=== PATIENT | male | born 1930 | race Caucasian/White ===

== ENCOUNTER 2017-01-06 13:31 | Emergency (ER) | payer MEDICARE, BC ==
[2017-01-06 14:15] LABS: CHLORIDE,CL 100 mmol/L (101-111); SODIUM,NA 134 mmol/L (135-145)
--- NOTE | 2017-01-06 14:35 | CR ---
Clinical history: 86-year-old male with shortness of breath reported on recent CT scan chest (Oct ruary 2016) to have "chronic pulmonary artery hypertension, small pericardial and bilateral pleural effusions and severe panlobular emphysema". Interpretation: Abnormal. Pneumothorax, left chest. 1. Large (1/4-1/3 volume left hemithorax) left pneumothorax new since CT exam 04 November. 2. No rib fractures or ipsilateral pleural effusion. No foreign bodies. No accompanying shift of the heart or mediastinal structures. No pneumomediastinum. 3. Normal cardiac silhouette without cephalization of vascular flow or pleural fluid accumulation. 4. Pelvis proximal pulmonary artery segments, generalized air trapping and analyzed pleural parenchy mal scarring with bullous changes of the right lung typical of "pulmonary emphysema". 5. Some platelike atelectasis particularly left base. No lobar pneumonia. CONCLUSION: Large left pneumothorax, acute.
--- NOTE | 2017-01-06 14:56 | EDM.PDOC ---
ED HISTORY OF PRESENT ILLNESS - General Chief Complaint: Respiratory Problem Stated Complaint: [id number] BREATHING HEART PROBLEMS Time Seen by Provider: 01/06/17 13:55 Source of Information: Reports: Patient History Limitations: Reports: No limitations - History of Present Illness INITIAL COMMENTS - FREE TEXT/NARRATIVE: This 86 yo male patient reports to the ED with increased shortness of breath over the past 3-4 days. The patient reports that he has been attempting to use steroids as directed by his primary care provider, but has not been getting any better. The patient has been treated numerous times for COPD and exacerbations. 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) - Related Data Allergies/ADRs: Allergies Allergy/AdvReac Type Severity Reaction Status Date / Time allopurinol Allergy Cannot Verified 09/24/16 07:07 Remember lovastatin Allergy Muscle Verified 09/24/16 07:07 Weakness Home Meds: Home Meds Atenolol 12.5 mg PO DAILY 02/17/15 [History] Budesonide/Formoterol [Symbicort 160-4.5 MCG] 2 puff INH BID 02/17/15 [History] Dabigatran Etexilate Mesylate [Pradaxa] 150 mg PO BID 02/17/15 [History] Flunisolide [Nasalide Nasal [place]] 2 spray JAYA BID PRN 02/17/15 [History] Lisinopril 10 mg PO DAILY 02/17/15 [History] Terazosin HCl [Terazosin] 2 mg PO BEDTIME 02/17/15 [History] predniSONE [Prednisone] 10 mg PO DAILY 02/17/15 [History] Amiodarone [Cordarone] 200 mg PO DAILY 08/08/16 [History] Furosemide [Lasix] 20 mg PO DAILY PRN 08/08/16 [History] Levothyroxine Sodium [Synthroid] 250 mcg PO DAILY 08/08/16 [History] Roflumilast [Daliresp] 500 mcg PO DAILY 08/08/16 [History] Albuterol Sulfate [Proair Hfa] 2 puff INH ASDIRECTED 09/22/16 [History] Tiotropium [Spiriva HandiHaler] 18 mcg INH DAILY 09/22/16 [History] Cholecalciferol (Vitamin D3) [Vitamin D3] 2,000 unit PO DAILY 09/23/16 [History] Past Medical History HEENT History: Reports: Allergic rhinitis Cardiovascular History: Reports: Afib, CAD, High cholesterol, Hypertension, [place] Respiratory History: Reports: Bronchitis, recurrent, COPD Gastrointestinal History: Reports: Hemorrhoids Genitourinary History: Reports: BPH, UTI, recurrent, Other (see below) Other Genitourinary History: Bladder cancer Musculoskeletal History: Reports: None Neurological History: Reports: None Psychiatric History: Reports: None Endocrine/Metabolic History: Reports: None Other Endocrine/Metabolic History: FASTING HYPERGLYCEMIA Hematologic History: Reports: None Immunologic History: Reports: None Oncologic (Cancer) History: Reports: Bladder Dermatologic History: Reports: None - Infectious Disease History Infectious Disease History: Reports: None - Past Surgical History Head Surgeries/Procedures: Reports: None HEENT Surgical History: Reports: Cataract surgery, Other (see below) Other HEENT Surgeries/Procedures: BILAT CATARACT EXTRACTION Social & Family History - Family History Family Medical History: Noncontributory - Tobacco Use Smoking Status *Q: Former Smoker Used Tobacco, but Quit: Yes Month Tobacco Last Used: quit 36 years ago Tobacco Use Comment: reports he quit 36 years ago Second Hand Smoke Exposure: No - Caffeine Use Caffeine Use: Reports: Coffee Other Caffeine Use: AVERAGE OF 3 CUPS DAILY - Recreational Drug Use Recreational Drug Use: No Drug Use in Last 12 Months: No ED ROS GENERAL - Review of Systems Review Of Systems: ROS reveals no pertinent complaints other than HPI. ED EXAM, GENERAL - Physical Exam Exam: See Below Exam Limited By: No limitations General Appearance: alert, WD/WN, moderate distress, thin Eye Exam: bilateral eye: EOMI, normal inspection, PERRL Ears: normal external exam, normal canal, hearing grossly normal, normal TMs Nose: normal inspection, normal mucosa, no blood Throat/Mouth: Normal inspection, Normal lips, Normal teeth, Normal gums, Normal oropharynx, Normal voice, No airway compromise Head: atraumatic, normocephalic Neck: normal inspection, supple, non-tender, full range of motion Respiratory/Chest: decreased breath sounds (left side of chest), wheezing Cardiovascular: normal peripheral pulses, regular rate, rhythm, no edema, no gallop, no JVD, no murmur, no rub GI/Abdominal: normal bowel sounds, soft, non tender, no organomegaly, no distention, no abnormal bruit, no mass (Male) Exam: Deferred Rectal (Males) Exam: Deferred Back Exam: normal inspection, full range of motion, NT Extremities: normal inspection, normal range of motion, non-tender, normal capillary refill, no pedal edema Neurological: alert, oriented, CN II-XII intact, normal cognition, normal gait, normal reflexes, no motor/sensory deficits Psychiatric: normal affect, normal mood Skin Exam: Warm, Dry, Intact, Normal color, No rash Lymphatic: no adenopathy Course - Vital Signs Last Recorded V/S: Last Vital Signs Temp 36.2 C 01/06/17 15:01 Pulse 70 01/06/17 15:01 Resp 16 01/06/17 15:01 BP 170/85 H 01/06/17 15:01 Pulse Ox 94 L 01/06/17 15:01 - Orders/Labs/Meds Orders: Active Orders 24 hr Category Date Time Status EKG Documentation Completion [RC] URGENT Care 01/06/17 13:41 Active Labs: Laboratory Tests 01/06/17 01/06/17 Range/Units 13:48 13:48 WBC 9.3 (5.0-10.0) 10^3/uL RBC 4.87 (4.6-6.2) 10^6/uL Hgb 13.3 L (14.0-18.0) g/dL Hct 41.9 (40.0-54.0) % MCV 86.0 (80-100) fL MCH 27.3 (27.0-34.0) pg MCHC 31.7 L (33.0-35.0) g/dL Plt Count 162 (150-450) 10^3/uL Neut % (Auto) 88.9 H (42.2-75.2) % Lymph % (Auto) 5.9 L (20.5-50.1) % Smith % (Auto) 4.9 (2-8) % Eos % (Auto) 0.2 L (1.0-3.0) % Baso % (Auto) 0.1 (0.0-1.0) % Sodium 134 L (135-145) mmol/L Potassium 4.2 (3.6-5.0) mmol/L Chloride 100 L (101-111) mmol/L Carbon Dioxide 25.0 (21.0-31.0) mmol/L Anion Gap 13.2 BUN 17 (7-18) mg/dL Creatinine 1.1 (0.6-1.3) mg/dL Est Cr Clr Drug Dosing 49.99 mL/min Estimated GFR (MDRD) > 60 BUN/Creatinine Ratio 15.45 Glucose 190 H (74-105) mg/dL Calcium 9.0 (8.4-10.2) mg/dl Total Bilirubin 0.7 (0.2-1.0) mg/dL AST 30 (10-42) IU/L ALT 23 (10-60) IU/L Alkaline Phosphatase 69 (42-121) IU/L Troponin I 0.03 H* (0.00-0.02) ng/ml Total Protein 7.2 (6.7-8.2) g/dl Albumin 3.2 (3.2-5.5) g/dl Globulin 4.0 Albumin/Globulin Ratio 0.80 - Re-Assessments/Exams Free Text/Narrative Re-Assessment/Exam: 01/06/17 15:01 A call was placed to the [facility] at [phone]. They advised that there was a bed and will call back for a provider to provider report. Departure - Departure Time of Disposition: 15:18 Disposition: DC/Tfer to Acute Hospital 02 Condition: poor Clinical Impression: Pneumothorax Qualifiers: Pneumothorax type: spontaneous, primary Qualified Code(s): J93.11 - Primary spontaneous pneumothorax Forms: Interfacility Transfer EMTALA Care Plan Goals: Discussed the history, examination, lab, and x-ray results with Dr. Taylor. Dr. Taylor accepted the patient for continued evaluation and further management at [facility] in [place]. The patient will be transported by ambulance. - My Orders Last 24 Hours: My Active Orders 01/06/17 13:41 EKG Documentation Completion [RC] URGENT - Assessment/Plan Last 24 Hours: My Active Orders 01/06/17 13:41 EKG Documentation Completion [RC] URGENT
[2017-01-06 15:53] VITALS: BP 174/97
--- NOTE | 2017-01-10 12:57 | EKG ---
01/06/2017 - ELIZABETH DEE - A 12-lead EKG shows normal sinus rhythm with ventricular premature complex. No significant ST elevation or ST depression noted on this 12-lead EKG. Nonspecific ST changes on lead V2, V3. [facility] /[id number]
== END 2017-01-06 16:51 ==
LOC: DL.ED 13:31
DX: J93.11 Primary spontaneous pneumothorax (principal); I48.91 Unspecified atrial fibrillation; I25.10 Atherosclerotic heart disease of native coronary artery without angina pectoris; E78.00 Pure hypercholesterolemia, unspecified; I10 Essential (primary) hypertension; I25.2 Old myocardial infarction; J44.9 Chronic obstructive pulmonary disease, unspecified; Z98.49 Cataract extraction status, unspecified eye; Z88.8 Allergy status to other drugs, medicaments and biological substances; Z79.899 Other long term (current) drug therapy; Z87.891 Personal history of nicotine dependence
CPT/HCPCS: 36415; 71020; 80053; 84484; 85025; 93005; 99284; 99285

== ENCOUNTER 2017-12-15 09:48 | Inpatient (IN) | payer OTHER, MEDICARE, BC ==
[2017-12-15] MEDS ORDERED: Diltiazem 25 MG/5 ML SDV IVPUSH ONE (10:11)
--- NOTE | 2017-12-15 10:14 | EDM.PDOC ---
<Krys Israel - Last Filed: 12/15/17 10:16> ED HPI GENERAL MEDICAL PROBLEM - General Chief Complaint: Cardiovascular Problem Stated Complaint: Atrial Fibrillation Time Seen by Provider: 12/15/17 10:10 Source of Information: Reports: Patient, RN, RN Notes Reviewed - History of Present Illness INITIAL COMMENTS - FREE TEXT/NARRATIVE: Harpreet is a 87yo M who presents to the ED due to palpitations that started three days ago. He reports that he was previously on amiodarone for atrial fibrillation but it was recently discontinued due to it interfering with his COPD medications. He reports occasional dizziness off and on and mild chest pressure. He denies increased shortness of breath, nausea/vomiting, recent illnesses, weakness, or fevers. He reports "I got sick of feeling like this so I came in." Onset: Gradual Duration: Day(s): Quality: Reports: Pressure Severity: Mild Improves with: Reports: None Associated Symptoms: Reports: Chest Pain - Related Data Allergies Allergy/AdvReac Type Severity Reaction Status Date / Time allopurinol Allergy Cannot Verified 12/15/17 10:25 Remember lovastatin Allergy Muscle Verified 12/15/17 10:25 Weakness Home Meds: Home Meds Atenolol 25 mg PO DAILY 02/17/15 [History] Budesonide/Formoterol [Symbicort 160-4.5 MCG] 2 puff INH BID 02/17/15 [History] Dabigatran Etexilate Mesylate [Pradaxa] 150 mg PO BID 02/17/15 [History] Flunisolide [Nasalide Nasal [place]] 2 spray JAYA BID PRN 02/17/15 [History] Lisinopril 10 mg PO DAILY 02/17/15 [History] Terazosin HCl [Terazosin] 2 mg PO BEDTIME 02/17/15 [History] predniSONE [Prednisone] 5 mg PO DAILY 02/17/15 [History] Furosemide [Lasix] 20 mg PO DAILY PRN 08/08/16 [History] Levothyroxine Sodium [Synthroid] 250 mcg PO DAILY 08/08/16 [History] Roflumilast [Daliresp] 500 mcg PO DAILY 08/08/16 [History] Albuterol Sulfate [Proair Hfa] 2 puff INH QID 09/22/16 [History] Tiotropium [Spiriva HandiHaler] 18 mcg INH DAILY 09/22/16 [History] Past Medical History HEENT History: Reports: Allergic Rhinitis Cardiovascular History: Reports: Afib, CAD, High Cholesterol, Hypertension, [place] Respiratory History: Reports: Bronchitis, Recurrent, COPD Gastrointestinal History: Reports: Hemorrhoids Genitourinary History: Reports: BPH, UTI, Recurrent, Other (See Below) Other Genitourinary History: Bladder cancer Musculoskeletal History: Reports: None Neurological History: Reports: None Psychiatric History: Reports: None Endocrine/Metabolic History: Reports: None Other Endocrine/Metabolic History: FASTING HYPERGLYCEMIA Hematologic History: Reports: None Immunologic History: Reports: None Oncologic (Cancer) History: Reports: Bladder Dermatologic History: Reports: None - Infectious Disease History Infectious Disease History: Reports: None - Past Surgical History HEENT Surgical History: Reports: Cataract Surgery, Other (See Below) Social & Family History - Family History Family Medical History: Noncontributory - Tobacco Use Smoking Status *Q: Former Smoker Used Tobacco, but Quit: Yes Month/Year Tobacco Last Used: quit 36 years ago Second Hand Smoke Exposure: No - Caffeine Use Caffeine Use: Reports: Coffee Other Caffeine Use: AVERAGE OF 3 CUPS DAILY - Recreational Drug Use Recreational Drug Use: No Drug Use in Last 12 Months: No ED ROS GENERAL - Review of Systems Review Of Systems: ROS reveals no pertinent complaints other than HPI. ED EXAM, GENERAL - Physical Exam Exam: See Below Exam Limited By: No Limitations General Appearance: Alert, WD/WN, No Apparent Distress Eye Exam: Bilateral Eye: PERRL Ears: Normal External Exam, Normal Canal, Hearing Grossly Normal, Normal TMs Ear Exam: Bilateral Ear: Auricle Normal, Canal Normal, TM normal Nose: Normal Inspection, Normal Mucosa, No Blood Throat/Mouth: Normal Inspection, Normal Lips, Normal Teeth, Normal Gums, Normal Oropharynx, Normal Voice, No Airway Compromise Head: Atraumatic, Normocephalic Neck: Normal Inspection, Supple, Non-Tender, Full Range of Motion Respiratory/Chest: No Respiratory Distress, Lungs Clear, Normal Breath Sounds, No Accessory Muscle Use, Chest Non-Tender, Other (Patient wears oxygen at 2 liters continuously due to underlying COPD. ) Cardiovascular: Normal Peripheral Pulses, No Edema, No Gallop, No JVD, No Rub ( Heart rate irregular. ) GI/Abdominal: Normal Bowel Sounds, Soft, Non-Tender, No Organomegaly, No Distention, No Abnormal Bruit, No Mass (Male) Exam: Deferred Rectal (Males) Exam: Deferred Back Exam: Normal Inspection, Full Range of Motion, NT Extremities: Normal Inspection, Normal Range of Motion, Non-Tender, Normal Capillary Refill, No Pedal Edema Neurological: Alert, Oriented, CN II-XII Intact, Normal Cognition, Normal Gait, Normal Reflexes, No Motor/Sensory Deficits Psychiatric: Normal Affect, Normal Mood Skin Exam: Warm, Dry, Intact, Normal Color, No Rash Lymphatic: No Adenopathy Course - Vital Signs Last Recorded V/S: Last Vital Signs Temp 98.2 F 12/15/17 10:00 Pulse 112 H 12/15/17 10:49 Resp 20 12/15/17 10:30 BP 117/62 12/15/17 10:49 Pulse Ox 93 L 12/15/17 10:25 - Orders/Labs/Meds Orders: Active Orders 24 hr Category Date Time Status EKG 12 Lead [EKG Documentation Completion] [RC] STAT Care 12/15/17 10:07 Active EKG Documentation Completion [RC] STAT Care 12/15/17 10:10 Active Peripheral IV Care [RC] . DIRECTED Care 12/15/17 10:11 Active UA W/MICROSCOPIC [URIN] Stat Lab 12/15/17 12:39 Ordered Sodium Chloride 0.9% [Normal Saline] 1,000 ml Med 12/15/17 11:42 Active IV .BOLUS Sodium Chloride 0.9% [Normal Saline] 100 ml Med 12/15/17 12:01 Active Diltiazem 125 mg IV 5 mg/hr Sodium Chloride 0.9% [Saline Flush] Med 12/15/17 10:10 Active 10 ml FLUSH ASDIRECTED PRN Peripheral IV Insertion Adult [OM.PC] Stat Oth 12/15/17 10:10 Ordered Medication Orders Sodium Chloride (Normal Saline) 1,000 mls @ 250 mls/hr IV .BOLUS ONE Stop: 12/15/17 15:41 Last Admin: 12/15/17 11:51 Dose: 250 mls/hr Diltiazem HCl 125 mg/ Sodium (Chloride) 125 mls @ 5 mls/hr IV .Q24H ONE; Protocol Stop: 12/16/17 12:00 Last Admin: 12/15/17 12:30 Dose: 5 mg/hr, 5 mls/hr Sodium Chloride (Saline Flush) 10 ml FLUSH ASDIRECTED PRN PRN Reason: Keep Vein Open Last Admin: 12/15/17 10:20 Dose: 10 ml Labs: Laboratory Tests 12/15/17 12/15/17 12/15/17 Range/Units 10:20 10:20 10:20 WBC 10.0 (5.0-10.0) 10^3/uL RBC 4.75 (4.6-6.2) 10^6/uL Hgb 13.4 L (14.0-18.0) g/dL Hct 42.4 (40.0-54.0) % MCV 89.3 D (80-100) fL MCH 28.2 (27.0-34.0) pg MCHC 31.6 L (33.0-35.0) g/dL Plt Count 179 (150-450) 10^3/uL Neut % (Auto) 80.5 H (42.2-75.2) % Lymph % (Auto) 9.3 L (20.5-50.1) % [place] % (Auto) 8.3 H (2-8) % Eos % (Auto) 1.6 (1.0-3.0) % Baso % (Auto) 0.3 (0.0-1.0) % PT 12.1 H (9.0-12.0) SEC INR 1.2 (0.9-1.2) Sodium 137 (135-145) mmol/L Potassium 4.0 (3.6-5.0) mmol/L Chloride 101 (101-111) mmol/L Carbon Dioxide 27.0 (21.0-31.0) mmol/L Anion Gap 13.0 BUN 21 H (7-18) mg/dL Creatinine 1.1 (0.6-1.3) mg/dL Est Cr Clr Drug Dosing 44.10 mL/min Estimated GFR (MDRD) > 60 BUN/Creatinine Ratio 19.09 Glucose 156 H (74-105) mg/dL Calcium 8.5 (8.4-10.2) mg/dl Total Bilirubin 0.8 (0.2-1.0) mg/dL AST 25 (10-42) IU/L ALT 16 (10-60) IU/L Alkaline Phosphatase 63 (42-121) IU/L Troponin I 0.02 (0.00-0.02) ng/ml Total Protein 6.8 (6.7-8.2) g/dl Albumin 2.8 L (3.2-5.5) g/dl Globulin 4.0 Albumin/Globulin Ratio 0.70 TSH, Ultra Sensitive (0.45-5.33) uIu/mL Urine Color (YELLOW) Urine Appearance (CLEAR) Urine pH (5.0-9.0) Ur Specific [place] (1.005-1.030) Urine Protein (NEGATIVE) Urine Glucose (UA) (NEGATIVE) Urine Ketones (NEGATIVE) Urine Occult Blood (NEGATIVE) Urine Nitrite (NEGATIVE) Urine Bilirubin (NEGATIVE) Urine Urobilinogen (0.2-1.0) mg/dL Ur Leukocyte Esterase (NEGATIVE) Urine RBC /HPF Urine WBC (0-5/HPF) /HPF Ur Epithelial Cells /HPF Amorphous Sediment (0/HPF) /HPF Urine Bacteria (0-FEW/HPF) /HPF Urine Mucus /LPF 12/15/17 12/15/17 Range/Units 10:20 12:39 WBC (5.0-10.0) 10^3/uL RBC (4.6-6.2) 10^6/uL Hgb (14.0-18.0) g/dL Hct (40.0-54.0) % MCV (80-100) fL MCH (27.0-34.0) pg MCHC (33.0-35.0) g/dL Plt Count (150-450) 10^3/uL Neut % (Auto) (42.2-75.2) % Lymph % (Auto) (20.5-50.1) % [place] % (Auto) (2-8) % Eos % (Auto) (1.0-3.0) % Baso % (Auto) (0.0-1.0) % PT (9.0-12.0) SEC INR (0.9-1.2) Sodium (135-145) mmol/L Potassium (3.6-5.0) mmol/L Chloride (101-111) mmol/L Carbon Dioxide (21.0-31.0) mmol/L Anion Gap BUN (7-18) mg/dL Creatinine (0.6-1.3) mg/dL Est Cr Clr Drug Dosing mL/min Estimated GFR (MDRD) BUN/Creatinine Ratio Glucose (74-105) mg/dL Calcium (8.4-10.2) mg/dl Total Bilirubin (0.2-1.0) mg/dL AST (10-42) IU/L ALT (10-60) IU/L Alkaline Phosphatase (42-121) IU/L Troponin I (0.00-0.02) ng/ml Total Protein (6.7-8.2) g/dl Albumin (3.2-5.5) g/dl Globulin Albumin/Globulin Ratio TSH, Ultra Sensitive 6.68 H (0.45-5.33) uIu/mL Urine Color [place] (YELLOW) Urine Appearance Clear (CLEAR) Urine pH 5.5 (5.0-9.0) Ur Specific [place] 1.025 (1.005-1.030) Urine Protein Negative (NEGATIVE) Urine Glucose (UA) Negative (NEGATIVE) Urine Ketones Negative (NEGATIVE) Urine Occult Blood Negative (NEGATIVE) Urine Nitrite Negative (NEGATIVE) Urine Bilirubin Small H (NEGATIVE) Urine Urobilinogen 0.2 (0.2-1.0) mg/dL Ur Leukocyte Esterase Negative (NEGATIVE) Urine RBC Not seen /HPF Urine WBC Not seen (0-5/HPF) /HPF Ur Epithelial Cells Rare /HPF Amorphous Sediment Few (0/HPF) /HPF Urine Bacteria Not seen (0-FEW/HPF) /HPF Urine Mucus Many H /LPF Meds: Medications Generic Name Dose Route Start Last Admin Trade Name Freq PRN Reason Stop Dose Admin Sodium Chloride 1,000 mls @ 250 mls/hr 12/15/17 11:42 12/15/17 11:51 Normal Saline IV 12/15/17 15:41 250 mls/hr .BOLUS ONE Administration Diltiazem HCl 125 mg/ Sodium 125 mls @ 5 mls/hr 12/15/17 12:01 12/15/17 12:30 Chloride IV 12/16/17 12:00 5 mg/hr .Q24H ONE 5 mls/hr Administration Protocol 5 MG/HR Sodium Chloride 10 ml 12/15/17 10:10 12/15/17 10:20 Saline Flush FLUSH 10 ml ASDIRECTED PRN Administration Keep Vein Open Discontinued Medications Generic Name Dose Route Start Last Admin Trade Name Freq PRN Reason Stop Dose Admin Diltiazem HCl 25 mg 12/15/17 10:11 12/15/17 10:20 Diltiazem IVPUSH 12/15/17 10:12 25 mg ONETIME ONE Administration Departure - Departure Disposition: Admitted As Inpatient 68 Clinical Impression: Atrial fibrillation with RVR Forms: ED Department Discharge - My Orders Last 24 Hours: My Active Orders 12/15/17 10:07 EKG 12 Lead [EKG Documentation Completion] [RC] STAT 12/15/17 10:10 EKG Documentation Completion [RC] STAT Sodium Chloride 0.9% [Saline Flush] 10 ml FLUSH ASDIRECTED PRN Peripheral IV Insertion Adult [OM.PC] Stat 12/15/17 10:11 Peripheral IV Care [RC] . DIRECTED 12/15/17 11:42 Sodium Chloride 0.9% [Normal Saline] 1,000 ml IV .BOLUS 12/15/17 12:01 Sodium Chloride 0.9% [Normal Saline] 100 ml Diltiazem 125 mg IV 5 mg/hr 12/15/17 12:39 UA W/MICROSCOPIC [URIN] Stat - Assessment/Plan Last 24 Hours: My Active Orders 12/15/17 10:07 EKG 12 Lead [EKG Documentation Completion] [RC] STAT 12/15/17 10:10 EKG Documentation Completion [RC] STAT Sodium Chloride 0.9% [Saline Flush] 10 ml FLUSH ASDIRECTED PRN Peripheral IV Insertion Adult [OM.PC] Stat 12/15/17 10:11 Peripheral IV Care [RC] . DIRECTED 12/15/17 11:42 Sodium Chloride 0.9% [Normal Saline] 1,000 ml IV .BOLUS 12/15/17 12:01 Sodium Chloride 0.9% [Normal Saline] 100 ml Diltiazem 125 mg IV 5 mg/hr 12/15/17 12:39 UA W/MICROSCOPIC [URIN] Stat <Maty Davis - Last Filed: 12/15/17 12:57> Course - Radiology Interpretation Free Text/Narrative:: Chest xray: Signs of COPD and chronic abnormalities right lung base. No pneumothorax, heart failure or lobar pneumonia See rad report - Re-Assessments/Exams Free Text/Narrative Re-Assessment/Exam: 12/15/17 12:04 Discussed pt case with Dr. Patel who was willing to admit the patient as an inpatient on Diltiazem drip. Departure - Departure Time of Disposition: 12:03 Condition: Fair
[2017-12-15] MEDS: Sodium Chloride 0.9% 10 ML Syringe FLUSH PRN ×2 (10:20→16:24)
[2017-12-15 10:47] LABS: CHLORIDE,CL 101 mmol/L (101-111); SODIUM,NA 137 mmol/L (135-145)
--- NOTE | 2017-12-15 10:47 | CR ---
Clinical history: 87-year-old male chest pain who has a significant history of COPD with radius "larg e spontaneous left pneumothorax". Interpretation: Prominent proximal pulmonary artery segments and chronic pleural-parenchymal scarring lung bases. Chronic small subpulmonic pleural effusion on the right. Normal cardiac silhouette for AP technique and no cephalization, new signs of alveolar edema or depen dent pleural fluid accumulation when compared to 06 January 2017 exam. No residual evidence "pneumothorax". No new lung mass or focal lobar pneumonia. CONCLUSION: Signs of COPD and chronic abnormalities right lung base. No pneumothorax, heart failure or lobar pneumonia.
[2017-12-15] MEDS ORDERED: Sodium Chloride 0.9% 1,000 ML IV ONE (11:42)
[2017-12-15] MEDS ORDERED: Diltiazem 125 MG in Sodium Chloride 0.9% 100 ML IV ONE (12:01)
[2017-12-15] MEDS ORDERED: Acetaminophen 325 MG Tab PO ONE (13:36)
[2017-12-15] MEDS ORDERED: Ondansetron 4 MG Tab.DIS PO PRN (14:32)
[2017-12-15] MEDS ORDERED: Docusate Sodium 100 MG Cap PO PRN (14:32)
[2017-12-15] MEDS ORDERED: Polyethylene Glycol 3350 Powder 17 GM Packet PO PRN (14:32)
[2017-12-15] MEDS ORDERED: Magnesium Hydroxide 400 MG/5 ML Susp 30 ML Cup PO PRN (14:32)
[2017-12-15] MEDS ORDERED: FLUNISOLIDE NAS PRN (14:36)
[2017-12-15] MEDS ORDERED: Sodium Chloride 0.9% 1,000 ML IV SCH (15:00)
[2017-12-15] MEDS: Diltiazem IR 30 MG Tab PO SCH ×2 (15:08→18:09)
[2017-12-15] MEDS: Aspirin 325 MG Tab.EC PO SCH (15:08)
[2017-12-15] MEDS: Albuterol 6.7 GM Inhaler INH SCH ×2 (18:07→20:40)
[2017-12-15] MEDS: Formoterol/Mometasone 200-5 MCG 8.8 GM Inhaler IH SCH (20:40)
[2017-12-15] MEDS: Terazosin 1 MG Cap PO SCH (20:41)
[2017-12-15] MEDS: Dabigatran 75 MG Cap PO SCH (20:42)
[2017-12-16] MEDS: Diltiazem IR 30 MG Tab PO SCH ×2 (00:07→05:13)
--- NOTE | 2017-12-16 00:45 | HP ---
CHIEF COMPLAINT: Chest discomfort with palpitations. HISTORY OF PRESENTING ILLNESS: Mr. Kalpana Lino is an 87-year-old male with medical history significant for hypertension, hyperlipidemia, coronary artery disease, history of chronic atrial fibrillation on chronic anticoagulation with Pradaxa, chronic obstructive pulmonary disease, chronic hypoxic respiratory failure, history of bladder cancer in the past, and benign prostatic hypertrophy, presented to the ER with complaints of increasing chest discomfort and palpitations and was noted to be in atrial fibrillation with rapid ventricular response and also hypertensive, requiring admission to the hospital. At this time, the patient claims that he has been sick for the last 4 to 5 days and almost a week where he was having intermittent episodes of chest discomfort, which is dull in nature, all over the chest 3 to 4/10 in intensity, aggravated on exertion, relieved with rest, associated with palpitations. Denies any fevers or chills in the last 2 days. No complaints of cough with sputum in the last few days. No complaints of nausea, vomiting, or diarrhea in the last few days. The patient claims that he has been on amiodarone for the last few years, but as his COPD was getting worse, they decided to stop his amiodarone, and he discontinued the amiodarone back in September, and he was supposed to see his primary work and family life consultant on December 22 to see if he can be on any other alternative medication for his atrial fibrillation. The patient denied any history of chest pains on exertion. No history of dyspnea on exertion. No history of orthopnea or paroxysmal nocturnal dyspnea. The patient denied any history of hematemesis, hematochezia, or melenic stools. Normal bowel and bladder habits otherwise. REVIEW OF SYSTEMS: A complete review of system including skin, ear, nose, and throat, cardiovascular system, respiratory system, gastrointestinal system, genitourinary system, hematology, oncology, neurology, and constitutional were all evaluated and were negative except for the above-said notes. PAST MEDICAL HISTORY: Significant for hypertension, hyperlipidemia, coronary artery disease, history of atrial fibrillation on chronic anticoagulation with Pradaxa, chronic obstructive pulmonary disease, chronic hypoxic respiratory failure, history of bladder cancer, benign prostatic hypertrophy. PAST SURGICAL HISTORY: Significant for cataract removal and bladder cystoscopy. FAMILY HISTORY: Significant for chronic obstructive pulmonary disease, Alzheimer disease, and heart disease in his father, aneurysm in one of his brother and depression in his brother, and Alzheimer disease in paternal grandmother. SOCIAL HISTORY: The patient had history of smoking in the remote past, quit smoking more than 20 years. Occasional alcohol intake. ALLERGIES: The patient noted to have allergies to lovastatin. HOME MEDICATIONS: Include: 1. Prednisone 5 mg daily. 2. Spiriva 18 mcg inhalation daily. 3. Terazosin 2 mg at bedtime. 4. Daliresp 500 mcg daily. 5. Lisinopril 10 mg daily. 6. Levothyroxine 250 mcg daily. 7. Lasix 20 mg daily as needed. 8. Pradaxa 150 mg twice a day. 9. Symbicort inhalation twice a day. 10.Atenolol 25 mg daily. 11.Albuterol 2 puffs inhalation 4 times a day. PHYSICAL EXAMINATION: Vital Signs: Temperature of 97.7, pulse of 135, blood pressure 190/72, respiratory rate of 22, and saturating at 94%. General Appearance: The patient is well oriented to time, place, and person. Follows commands spontaneously. Cardiovascular: S1, S2 heard with normal intensity. No gallops. Respiratory: Clear to auscultation bilaterally. No wheeze. No crepitations. Abdomen: Soft. Bowel sounds positive. Nontender. No rigidity. Extremities: No edema in bilateral lower extremities. Neurologic: No gross focal neurological deficits. LABORATORY DATA: 1. WBC 10, hemoglobin 13.4, hematocrit 42.4, and platelet count 179. 2. INR 1.2. 3. Sodium 137, potassium 4, chloride 101, bicarb 27, BUN 21, creatinine 1.1, and glucose 156. 4. Urinalysis negative for nitrites, negative for leukocytes. ASSESSMENT: 1. Atrial fibrillation with rapid ventricular response. 2. Hypertensive episode secondary to atrial fibrillation with rapid ventricular response. 3. Hyperlipidemia. 4. Coronary artery disease. 5. Chronic obstructive pulmonary disease. 6. Chronic hypoxic respiratory failure. 7. Chronic anticoagulation with Pradaxa. PLAN: 1. Atrial fibrillation with rapid ventricular response. The patient will be admitted to the Telemetry Unit. We will have him on Cardizem drip for now. We will try to get the heart rate under control. We will start him on metoprolol for now. For heart rate control once the blood pressure picks up, one might consider adding a digoxin if he continues to have low blood pressure and rapid heart rate. We will closely follow the patient. His creatinine is within normal limits, so we cannot dose adjust his digoxin. We will get a 2D echocardiogram in a.m. We will obtain serial cardiac enzymes. The patient denies any ongoing chest pains for now. His first set of cardiac enzymes will be monitored. He has had a troponin of 0.02 while in the emergency room. Closely, monitor in the Telemetry Unit. 2. Hypertension. The patient is currently hypotensive. Hold his lisinopril and restart his blood pressure pills once his blood pressure in much control. He is noted to be in atenolol. We will discontinue atenolol and put him on a metoprolol dosing for better control of the heart rate, and we will follow the echocardiogram. 3. Chronic obstructive pulmonary disease, remains stable. Continue with current inhalation treatment. He has been on chronic oxygen. Continue with supplemental oxygen to maintain the saturation of 95%. 4. DVT prophylaxis. The patient is currently on Pradaxa. Continue the same. 5. Code status. The patient wants to be DNR/DNI. 6. Discussed with family members regarding the plan of care. Discussed with Dr. Jiménez, ER physician, regarding the plan of care. Reviewed the labs and medications. Reviewed the old charts. [facility] /[id number]
[2017-12-16] MEDS: Acetaminophen 325 MG Tab PO PRN ×2 (00:49→21:22)
[2017-12-16 04:44] LABS: CHLORIDE,CL 106 mmol/L (101-111); SODIUM,NA 138 mmol/L (135-145)
[2017-12-16] MEDS ORDERED: Non-Formulary Medication 1 Each (Roflumilast [Daliresp] 500 MCG) PO SCH (09:00)
[2017-12-16] MEDS: Formoterol/Mometasone 200-5 MCG 8.8 GM Inhaler IH SCH ×2 (09:13→21:21)
[2017-12-16] MEDS: Albuterol 6.7 GM Inhaler INH SCH ×4 (09:13→21:22)
[2017-12-16] MEDS: Aspirin 325 MG Tab.EC PO SCH (09:13)
[2017-12-16] MEDS: predniSONE 5 MG Tab PO SCH (09:13)
[2017-12-16] MEDS: Dabigatran 75 MG Cap PO SCH ×2 (09:13→21:18)
[2017-12-16] MEDS: Tiotropium Inhaler 18 MCG Inhalation Powder Cap Kit of 5 INH SCH (09:14)
[2017-12-16] MEDS ORDERED: Sodium Chloride 0.9% 500 ML IV ONE (09:45)
[2017-12-16] MEDS: Diltiazem 240 MG Cap.CD PO SCH (11:29)
[2017-12-16] MEDS ORDERED: Diltiazem 25 MG/5 ML SDV IVPUSH ONE ×2 (12:15→22:00)
--- NOTE | 2017-12-16 13:25 | PN ---
DATE: 12/16/2017 SUBJECTIVE: Mr. Kalpana Mullins is an 87-year-old male with medical history significant for hypertension; hyperlipidemia; coronary artery disease; history of atrial fibrillation, on chronic anticoagulation with Pradaxa; chronic obstructive pulmonary disease; and history of bladder cancer, admitted to the hospital with atrial fibrillation with rapid ventricular response. For the last 24 hours, the patient was started on IV Cardizem drip yesterday, after which, his rate was much controlled. We were able to wean him off the Cardizem drip, and he did well overnight, but this morning when the patient was using the bathroom, the patient went into rapid ventricular response again with hypotension requiring fluid bolus of 250 mL. At the rest, his rate seems to be well controlled at around 90. He denies any chest pain. No shortness of breath. No abdominal pain. No nausea. No vomiting. No diarrhea. No dizziness at this time. REVIEW OF SYSTEMS: Cardiovascular, respiratory, gastrointestinal, neurology, constitutional were all evaluated. PHYSICAL EXAMINATION: Vital Signs: Temperature of 97.9, pulse of 93, blood pressure 123/66, respiratory rate of 18, and saturating at 95% on room air. General Appearance: The patient is well oriented to time, place, and person. Follows commands spontaneously. Cardiovascular System: S1 and S2 heard with normal intensity. No gallops. Respiratory System: Clear to auscultation bilaterally. No wheeze. No crepitations. Abdomen: Soft. Bowel sounds positive. Nontender. No rigidity. Extremities: No edema in the bilateral lower extremities. MEDICATIONS: Reviewed. Continue with: 1. Tylenol 650 every 6 hours as needed for pain. 2. Albuterol inhalation 4 times a day as needed. 3. Aspirin 325 mg daily. 4. Pradaxa 150 mg twice a day. 5. Cardizem changed to CD 240 mg daily. 6. Docusate sodium 100 mg twice a day. 7. Levothyroxine 250 mcg daily. 8. Milk of magnesia as needed. 9. Prednisone 5 mg daily. 10.Spiriva 18 mcg inhalation daily. LABORATORY DATA: 1. Sodium 138, potassium 4, chloride 106, bicarb 25, BUN 22, creatinine 0.9, glucose 101. 2. Troponin up to 0.23 but this morning 0.16. ASSESSMENT: 1. Atrial fibrillation with rapid ventricular response. 2. Elevated troponin. 3. Hypotensive episodes. 4. Hypertension. 5. Chronic obstructive pulmonary disease. PLAN: 1. Atrial fibrillation with rapid ventricular response. The patient's rate seems to be much controlled from the time of admission, but it gets aggravated when he is ambulating around, so the patient is encouraged to have bedrest till we have this rate under control. We will increase the Cardizem to extended release 240 mg daily. Waiting for 2D echocardiogram report. We will see the patient would benefit from any addition of digoxin depending on the echocardiogram report, closely follow. 2. Elevated troponin. This could be resulting from AFib with RVR. He denies any ongoing chest pain. A 12-lead EKG was benign at the time of admission. Closely monitor in the Telemetry Unit. 3. Hypertension. The patient is currently hypotensive. Try to avoid any antihypertensive medications for systolic blood pressure less than 110. 4. DVT prophylaxis. The patient has been on Pradaxa. We will continue the same. [facility] /[id number]
[2017-12-16] MEDS: Terazosin 1 MG Cap PO SCH (21:19)
[2017-12-16] MEDS: Sodium Chloride 0.9% 10 ML Syringe FLUSH PRN (21:22)
[2017-12-17] MEDS: Formoterol/Mometasone 200-5 MCG 8.8 GM Inhaler IH SCH (08:07)
[2017-12-17] MEDS: predniSONE 5 MG Tab PO SCH (08:07)
[2017-12-17] MEDS: Diltiazem 240 MG Cap.CD PO SCH (08:07)
[2017-12-17] MEDS: Albuterol 6.7 GM Inhaler INH SCH (08:07)
[2017-12-17] MEDS: Dabigatran 75 MG Cap PO SCH (08:07)
[2017-12-17] MEDS: Aspirin 325 MG Tab.EC PO SCH (08:07)
[2017-12-17] MEDS: Tiotropium Inhaler 18 MCG Inhalation Powder Cap Kit of 5 INH SCH (08:08)
[2017-12-17] MEDS ORDERED: Diltiazem 25 MG/5 ML SDV IVPUSH ONE (08:34)
[2017-12-17] MEDS ORDERED: Diltiazem 125 MG in Sodium Chloride 0.9% 100 ML IV ONE (09:52)
[2017-12-17 11:10] VITALS: BP 129/64
--- NOTE | 2017-12-17 11:47 | DISCH ---
ADMITTING DIAGNOSES: Atrial fibrillation with rapid ventricular response. DISCHARGE DIAGNOSES: 1. Atrial fibrillation with rapid ventricular response. 2. Elevated troponin. HISTORY OF PRESENT ILLNESS: Mr. Harpreet Acuna is an 87-year-old male with a medical history significant for hypertension; hyperlipidemia; coronary artery disease; chronic atrial fibrillation, on chronic anticoagulation with Pradaxa; chronic obstructive pulmonary disease; chronic hypoxic respiratory failure; and history of bladder cancer in the past, was admitted to the hospital with complaints of AFib with RVR. The patient was started on IV Cardizem drip, after which, his heart rate much improved, but the patient continued to have episodes of AFib with RVR with heart rate in the range of 140s to 150s and not responding well to the oral diltiazem. 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 The patient is being transferred to higher level of care to [facility] which has Cardiology available, and we will need to have a cardiology consultation on this patient. Called [facility] as the [place] belongs to [place]. The [place]. After reviewing the [facility], as [facility] does not have any Cardiology on consultation team for the weekend, he is being transferred to [facility]. PHYSICAL EXAMINATION: On the day of discharge: Vital Signs: Temperature of 98.7, pulse of 63, blood pressure 153/82, respiratory rate of 20, and saturating at 93% on 3 L of oxygen. General Appearance: The patient is well oriented to time, place, and person. Follows commands spontaneously. Cardiovascular System: S1 and S2 heard with normal intensity. Regular heart rate. Respiratory System: Clear to auscultation bilaterally except for mild crepitations at the bases. No wheezes. Abdomen: Soft. Bowel sounds positive. Nontender. No rigidity. No guarding. No rebound tenderness. Extremities: No edema in the bilateral lower extremities. DISCHARGE MEDICATIONS: Include: 1. Albuterol 2-puff inhalation 4 times a day. 2. Symbicort 2-puff inhalation twice daily. 3. Pradaxa 150 mg twice a day. 4. Flonase 2 sprays twice daily. 5. Lasix 20 mg daily. 6. Levothyroxine 250 mcg daily. 7. Lisinopril 10 mg daily. 8. Daliresp 500 mcg daily. 9. Terazosin 2 mg at bedtime. 10.Spiriva 18 mcg inhalation daily. 11.Prednisone 5 mg daily. CONDITION ON ADMISSION: Poor. CONDITION ON DISCHARGE: Stable. DISPOSITION: Discharged to [facility] for further evaluation and treatment by Cardiology. DIET: Cardiac healthy diet. ACTIVITY: As tolerated. FOLLOWUP: Follow up with primary care physician in 2 weeks post discharge from [facility]. TIME SPENT: Spent over 35 minutes of time in evaluating and treating this patient and making discharge planning. [facility] /[id number]
--- NOTE | 2017-12-18 12:28 | EKG ---
12/15/2017 - ELIZABETH DEE - TIME: 10:38:27 FINDINGS: A 12-lead EKG shows atrial fibrillation with rapid ventricular response with heart rate of 118. No significant ST elevation or ST depression noted on this 12-lead EKG. [facility] /[id number]
--- NOTE | 2017-12-18 13:13 | EKG ---
12/15/2017 - ELIZABETH DEE - This 12-lead EKG shows atrial fibrillation with rapid ventricular response with heart rate of 158. No significant ST elevation or ST depression noted on this 12-lead EKG. [facility] /[id number]
== END 2017-12-17 12:10 | DRG 309 ==
LOC: DL.ED 09:48 → UNDOADMIN 13:56 → DL.MS 13:56
PROVIDERS: ADMIT Internal Medicine; ATTEND Internal Medicine
DX: I48.91 Unspecified atrial fibrillation (principal); J96.11 Chronic respiratory failure with hypoxia; J44.9 Chronic obstructive pulmonary disease, unspecified; J30.9 Allergic rhinitis, unspecified; I25.10 Atherosclerotic heart disease of native coronary artery without angina pectoris; I10 Essential (primary) hypertension; N40.0 Benign prostatic hyperplasia without lower urinary tract symptoms; E78.5 Hyperlipidemia, unspecified; I95.9 Hypotension, unspecified; R74.8 Abnormal levels of other serum enzymes; I25.2 Old myocardial infarction; Z87.891 Personal history of nicotine dependence; Z87.440 Personal history of urinary (tract) infections; Z88.8 Allergy status to other drugs, medicaments and biological substances; Z79.52 Long term (current) use of systemic steroids; Z79.899 Other long term (current) drug therapy; Z79.01 Long term (current) use of anticoagulants; Z85.51 Personal history of malignant neoplasm of bladder; Z66 Do not resuscitate
CPT/HCPCS: 36415; 71045; 80048; 80053; 81001; 83735; 84443; 84484; 85025; 85610; 93005; 93010; 93306; 96361; 96365; 96376; 99285; A9270-GY; J3490; J7030; J7040; J7050